=== PATIENT | male | born 1995 | race Caucasian/White ===

== ENCOUNTER 2020-01-19 09:52 | Emergency (ER) | payer OTHER, SELFPAY ==
--- NOTE | ~2020-01-19 | CT_ITS ---
EXAMINATION: CT abdomen pelvis wo con DATE: 01/19/2020 11:10 INDICATION: Left flank pain. TECHNIQUE: Computed tomography (CT) of the abdomen and pelvis was performed without intravenous contr ast. Automated exposure control and iterative reconstruction technique were employed. The dose-length product was 1297.81 mGy-cm. COMPARISON: None. FINDINGS: The visualized portions of the lung bases demonstrate numerous scattered calcified pulmonar y nodules, consistent with old granulomatous disease. No pleural effusion. The heart size is normal. No pericardial effusion. The liver, gallbladder, spleen, pancreas, adrenal glands, and kidneys are no rmal. There is no urolithiasis. There are no dilated loops of bowel. There are changes of appendectom y. There is a small umbilical hernia containing fat. There is a small supraumbilical ventral hernia c ontaining fat. There are no pathologically enlarged lymph nodes. There is no free intraperitoneal flu id. There is mild lumbar spondylosis. IMPRESSION: 1. No urolithiasis. 2. Small umbilical and supraumbilical ventral hernias containing fat. Reviewed, dictated and finalized at location B. [employer]
[2020-01-19 10:16] VITALS: BP 152/103; PULSE 87; RESP 18; TEMP 36.7; O2SAT 99
--- NOTE | 2020-01-19 10:44 | ED.BACK ---
HPI - Back Pain/Injury General Chief Complaint: Back Pain/Injury Stated Complaint: back pain Source: patient Mode of arrival: ambulatory Limitations: no limitations History of Present Illness HPI Narrative: This is a 24-year-old gentleman presents with some chronic back pain with a history of bulging disc in the thoracic and lumbar spine presents with some increased pain level about an 8/10 with some some sciatic pain and discomfort radiating down his left lower extremity with no saddle paresthesias no dysuria no fever or chills. Patient has Flexeril and has been taking that [id number] along with NSAIDs with minimal relief. There is no abdominal pain no dysuria no hematuria. Has been having left flank flank pain and tenderness which he attributes to a different from his normal back pain. MD elicited complaint: back pain Pertinent past history: prior back pain Onset (ago): day(s) Timing: intermittent Severity: moderate Pain scale (0-10): 8 Similar Symptoms Previously: Yes Quality: dull, aching and spasming Location: lumbar spine and thoracic spine Radiation: left leg below the knee Exacerbating factors: movement Relieving factors: immobilization Context: while lifting, turning/twisting and bending Associated symptoms: denies other symptoms Related Data Allergies Allergy/AdvReac Type Severity Reaction Status Date / Time No Known Allergies Allergy Verified 01/19/20 10:15 Review of Systems Review of Systems: All systems reviewed & are unremarkable except as noted in HPI and below PMFSH Past Medical History Medical History Chronic back pain Exam Const: General: no acute distress and alert Orientation/consciousness: patient oriented x3 HENMT: Head: normal to inspection Eyes: Conjunctivae: conjunctivae normal Pupils: Equal, round and reactive pupils present EOM: EOMs intact bilaterally Chest: Chest palpation & inspection: normal inspection of the chest Resp: Effort & Inspection: normal respiratory effort Auscultation: clear to auscultation bilaterally Cardio: Rate: regular rate, not bradycardic and not tachycardic Rhythm: regular rhythm and regular rhythm Heart sounds: no murmurs GI: Auscultation: normal bowel sounds Urinary Catheter: Urinary Catheter: patent and draining Back/Spine/Pelvis: Back: no CVA tenderness Skin: General skin exam: normal color Rashes: no rashes Neuro: General: patient oriented x3, moves all extremities, no meningeal signs and no focal motor deficits Extrem: Other: thoracic and lumbar spine pain with some radiculopathy to his some left lower leg with no weakness normal reflexes upper and lower extremities. Psych: Mental Status: mental status grossly normal Course Course Emergency Course: Patient received IM Toradol and pain has improved and will discharge with recommendations to follow-up with his primary care physician along with some pain medication and muscle relaxants. reassessment of patient pain has some mildly improved some and review CT scan and labs with patient and urinalysis with some showed no acute renal or kidney stones. Vital Signs Vital signs: Vital Signs Temperature 36.7 C 01/19/20 10:16 Pulse Rate 87 01/19/20 10:16 Respiratory Rate 18 01/19/20 10:16 Blood Pressure 152/103 H 01/19/20 10:16 Pulse Oximetry 99 01/19/20 10:16 Temperature 36.7 C 01/19/20 10:16 Pulse Rate 87 01/19/20 10:16 Respiratory Rate 18 01/19/20 10:16 Blood Pressure 152/103 H 01/19/20 10:16 Pulse Oximetry 99 01/19/20 10:16 Critical Care Time Critical Care Time Critical Care Time: No Discharge Plan Discharge Clinical Impression: Lumbar radiculopathy Chronic back pain Qualifiers: Back pain location: low back pain Back pain laterality: left Sciatica presence: with sciatica Sciatica laterality: sciatica of left side Qualified Code(s): M54.42 - Lumbago with sciatica, left side Sc
[2020-01-19] MEDS: KETOROLAC (*BKC) 60 MG/2 ML VIAL IM (10:46)
--- NOTE | 2020-01-19 10:56 | PC.NURSE ---
Report given to YESIKA Grace
[2020-01-19] MEDS: SODIUM CHLORIDE 0.9% IV 500 ML 999 ML IV CONT (11:02)
[2020-01-19 11:06] LABS: Add Urine Microscopic? NO; Appearance Urine Clear (Clear); Bilirubin Urine Negative (Negative); Blood Urine Negative (Negative); Color Urine Yellow (Yellow); Glucose Urine UA Negative (Negative); Ketones Urine Negative (Negative); Leukocyte Esterase Ur Negative (Negative); Nitrate Urine Negative (Negative); Protein Urine Negative (Negative); Urobilinogen Urine 0.2 mg/dL (0.2-1.0); pH Urine 5.5 (5.0-8.0)
[2020-01-19 11:28] LABS: Basophils Absolute Auto 0.02 K/mm3 (0.00-0.10); Basophils Percent Auto 0.3 % (0.0-1.0); Eosinophils Absolute Auto 0.13 K/mm3 (0.02-0.50); Eosinophils Percent Auto 1.8 % (1.0-6.0); Hematocrit 45.6 % (40.0-54.0); Hemoglobin 15.9 g/dL (14.0-18.0); Immature Granulocyte Absolute 0.02 K/mm3 (0.00-0.00); Immature Granulocyte Percent A 0.3 % (0.0-0.0); Lymphocytes Absolute Auto 2.05 K/mm3 (1.10-4.50); Lymphocytes Percent Auto 28.9 % (18.0-42.0); Mean Corpuscular HGB Conc 34.9 g/dL (32.0-36.0); Mean Corpuscular Volume 94.6 fL (78.0-102.0); Mean Platelet Volume 8.8 fl (8.7-11.0); Monocytes Absolute Auto 0.58 K/mm3 (0.10-0.90); Monocytes Percent Auto 8.2 % (2.0-11.0); Neutrophils Absolute Auto 4.3 K/mm3 (1.7-7.2); Neutrophils Percent Auto 60.5 % (50.0-70.0); Platelet Count Result 204 K/mm3 (150-420); Red Blood Count 4.82 M/mm3 (4.70-6.10); White Blood Count 7.1 K/mm3 (4.8-10.8)
[2020-01-19 11:43] LABS: Alanine Aminotransferase 71 U/L (16-63); Albumin Level 4.2 g/dL (3.4-5.0); Alkaline Phosphatase 68 U/L (46-116); Anion Gap 11 mmol/L (8-16); Aspartate Amino Transferase 21 U/L (15-37); Bilirubin,Total 0.2 mg/dL (0.00-1.00); Blood Urea Nitrogen 14 mg/dL (7-18); Calcium 8.8 mg/dL (8.5-10.1); Carbon Dioxide 24 mmol/L (21-32); Chloride 104 mmol/L (98-108); Estimated CRCL calculation 140 ml/min; Estimated Glomerular Filt Rate > 60; Glucose 92 mg/dL (70-99); Osmolality Calculated 288 mOsm/kg (285-295); Potassium 4.4 mmol/L (3.5-5.1); Sodium 139 mmol/L (136-145); Total Protein 7.8 g/dL (6.4-8.2)
[2020-01-19 11:44] VITALS: BP 138/83
== END 2020-01-19 12:13 | disposition home or self-care (01) ==
PROVIDERS: Emergency Provider Emergency Medicine
DX: M54.16 Radiculopathy, lumbar region (principal); M54.42 Lumbago with sciatica, left side
CPT/HCPCS: 36415; 74176; 80053; 81003; 85025; 96372; 99283; 99284; J1885; J7040